=== PATIENT | male | born 1945 | race Caucasian/White ===

== ENCOUNTER 2016-07-16 16:22 | Emergency (ER) | payer MEDICARE, OTHER ==
[2016-07-16] MEDS ORDERED: Ketorolac 60 MG/2 ML SDV IM ONE (16:53)
--- NOTE | 2016-07-16 17:00 | EDM.PDOC ---
ED HPI Trauma - General Chief Complaint: Lower Extremity Injury/Pain Stated Complaint: PAIN LT KNEE Time Seen by Provider: 07/16/16 16:30 - History of Present Illness INITIAL COMMENTS - FREE TEXT/NARRATIVE: HISTORY AND PHYSICAL: History of present illness: The patient is a 71-year-old male who usually follows [facility] or with Dr. New in our clinic presents with a several year history of on and off left knee pain that got worse over the last few days. Patient used to do work requiring him to be on his hands and knees a lot and says that he had pain associated with that but he has had no new trauma recently such as twisting or falling on the knee. He has no proximal hip pain and no distal ankle or foot pain. There is no calf pain or swelling. There Is no neurosensory changes in the leg. He has noted some swelling in the area but no other skin changes. He Has no systemic complaints of fever chills chest pain shortness of breath vomiting or diarrhea. He states that when he moves or uses the leg it hurts more when he rested he feels improved. Patient does state that he has had steroid injections in his right knee in the past Review of systems: As per history of present illness and below otherwise all systems reviewed and negative. Past medical history: As per history of present illness and as reviewed below otherwise noncontributory. Surgical history: As per history of present illness and as reviewed below otherwise noncontributory. Social history: No reported history of drug or alcohol abuse. Family history: As per history of present illness and as reviewed below otherwise noncontributory. Physical exam: General: Well-developed overweight male is nontoxic and speaking clearly and easily in the ED. He angulated to the ED without distress. HEENT: Atraumatic, normocephalic, negative for conjunctival pallor or scleral icterus, mucous membranes moist, throat clear, neck supple, nontender, trachea midline. Lungs: Clear to auscultation, breath sounds equal bilaterally, chest nontender. Heart: S1S2, regular, negative for clicks, rubs, or JVD. Abdomen: Soft, nondistended, nontender. Abdomen is rotund bowel sounds are slightly hypoactive Negative for masses or hepatosplenomegaly. Pelvis: Stable nontender. Genitourinary: Deferred. Rectal: Deferred. Extremities: Atraumatic, negative for cords or calf pain. Neurovascular unremarkable. There is no palpable tenderness at the lateral hips and the right knee and ankle without tenderness deformity swelling or changes. At the anterior left knee there is an ill-defined pinkish erythema noted just distal to the patella and there is some warmth in this region but no lesions or skin breaks are seen. It is not circumferential. There is no fluctuance to the area and there is no palpable bony deformities. There is no joint effusion appreciated and distally there is no tenderness in the lateral calf and ankle and proximally there is no streaking of the erythema and there is no extension of this warmth into the thigh. There is no popliteal fossa tenderness. Patient is able to flex and extend at the knee. Neuro: Awake, alert, oriented. Cranial nerves II through XII unremarkable. Cerebellum unremarkable. Motor and sensory unremarkable throughout. Exam nonfocal. Diagnostics: X-ray left knee, CBC CRP ESR uric acid Therapeutics: toradol Scott bandage I discussed all testing results with the patient and the likely diagnosis. I will refer him to our orthopedics Department for further care as well as back to [facility] to see his primary care physician or to Dr. New. The patient has diclofenac that he got from the [facility] that he can continue to take and I have advised him to take it twice a day for the next 5 days to help interrupt the pain cycle. I will also give him a Medrol pack to help assist with the inflammation. Impression: Left knee pain acute on chronic, likely inflammatory arthritis rule out gout Definitive disposition and diagnosis as appropriate pending reevaluation and review of above. Allergies/ADRs: Allergies No Known Allergies Allergy (Verified 07/16/16 16:35) Home Medications: Ambulatory Orders Cholecalciferol (Vitamin D3) [Vitamin D3] 1 tab.chew PO DAILY 01/21/15 [ Confirmed 03/19/16] Clotrimazole/Betamethasone Dip [Lotrisone Cream] 1 applic TOP ASDIRECTED PRN 11/30 [Confirmed 03/19/16] Cyanocobalamin (Vitamin B-12) [Vitamin B-12] 1 tab PO DAILY 01/21/15 [Confirmed 03/19/16] Dutasteride [Avodart] 1 tab PO BEDTIME 01/21/15 [Confirmed 03/19/16] Inulin [Fiber Choice] 1 tab.chew CHEW DAILY 01/21/15 [Confirmed 03/19/16] Bacillus Coagulans [Probiotic] 1 tab.chew PO DAILY 03/14/16 [Confirmed 03/19/16] Diclofenac Sodium [Voltaren 1% Gel] 1 applic TOP BID 03/14/16 [Confirmed ] Naproxen Sodium [Aleve] 1 tab PO ASDIRECTED PRN 03/14/16 [Confirmed 03/19/16] Omega3/Dha/Epa/Fish Oil/Vit D3 [[place]-3 + Vitamin D3 Softgel] 1 tab PO DAILY [Confirmed 03/19/16] Acetaminophen/oxyCODONE [Percocet 325-5 MG] 1 tab PO Q6H PRN #30 tablet [Confirmed 03/19/16] Docusate Sodium [Colace] 100 mg PO DAILY #5 cap 03/17/16 [Confirmed 03/19/16] Past Medical History Other HEENT History: coral hearing aids Cardiovascular History: Reports: High cholesterol Respiratory History: Reports: COPD, Sleep apnea Other Respiratory History: uses CPAP Gastrointestinal History: Reports: Other (see below) Other Gastrointestinal History: occasional heartburn Genitourinary History: Reports: BPH Other Genitourinary History: BPH Musculoskeletal History: Reports: Arthritis Neurological History: Reports: None Psychiatric History: Reports: None Endocrine/Metabolic History: Reports: Obesity/BMI 30+ Other Endocrine/Metabolic History: prediabetic Hematologic History: Reports: None Immunologic History: Reports: None Oncologic (Cancer) History: Reports: None Dermatologic History: Reports: Other (see below) Other Dermatologic History: groin rash, anal pruritus, dermatitis - Past Surgical History Head Surgeries/Procedures: Reports: None HEENT Surgical History: Reports: None Cardiovascular Surgical History: Reports: None Respiratory Surgical History: Reports: None GI Surgical History: Reports: Colonoscopy, EGD, Hernia, abdominal Male Surgical History: Reports: None Endocrine Surgical History: Reports: None Musculoskeletal Surgical History: Reports: None Oncologic Surgical History: Reports: None Social & Family History - Family History Family Medical History: Noncontributory - Tobacco Use Smoking Status *Q: Never Smoker Second Hand Smoke Exposure: No - Caffeine Use Caffeine Use: Reports: None - Recreational Drug Use Recreational Drug Use: No Drug Use in Last 12 Months: No Review of Systems - Review of Systems Review Of Systems: ROS reveals no pertinent complaints other than HPI. Trauma Exam - Physical Exam Exam: See Below (See dictation) Course - Vital Signs Last Recorded V/S: Last Vital Signs Temp 36.9 C 07/16/16 16:36 Pulse 103 H 07/16/16 16:36 Resp 18 07/16/16 16:36 BP 142/93 H 07/16/16 16:36 Pulse Ox 97 07/16/16 16:36 - Orders/Labs/Meds Orders: Active Orders 24 hr Category Date Time Status Knee 3V Lt [CR] Stat Exams 07/16/16 16:53 Taken Labs: Laboratory Tests 07/16/16 07/16/16 07/16/16 Range/Units 17:00 17:00 17:00 WBC 10.61 (4.0-11.0) K/uL RBC 4.41 L (4.50-5.90) M/uL Hgb 13.7 (13.0-17.0) g/dL Hct 39.1 (38.0-50.0) % MCV 88.7 (80.0-98.0) fL MCH 31.1 (27.0-32.0) pg MCHC 35.0 (31.0-37.0) g/dL RDW Std Deviation 44.8 (28.0-62.0) fl RDW Coeff of Tigist 14 (11.0-15.0) % Plt Count 149 L (150-400) K/uL MPV 9.70 (7.40-12.00) fL Neut % (Auto) 75.7 (48.0-80.0) % Lymph % (Auto) 14.8 L (16.0-40.0) % [place] % (Auto) 7.9 (0.0-15.0) % Eos % (Auto) 1.4 (0.0-7.0) % Baso % (Auto) 0.2 (0.0-1.5) % Neut # 8.0 H (1.4-5.7) K/uL Lymph # 1.6 (0.6-2.4) K/uL [place] # 0.8 (0.0-0.8) K/uL Eos # 0.2 (0.0-0.7) K/uL Baso # 0.0 (0.0-0.1) K/uL Nucleated RBC % 0.0 /100WBC Nucleated RBCs # 0 K/uL ESR 33 H (0-19) mm/hr Uric Acid 7.9 H (2.1-7.4) mg/dL C-Reactive Protein 0.97 H (0.0-0.5) mg/dL Meds: Medications Discontinued Medications Generic Name Dose Route Start Last Admin Trade Name Freq PRN Reason Stop Dose Admin Ketorolac Tromethamine 60 mg 07/16/16 16:53 07/16/16 17:03 Toradol IM 07/16/16 16:54 60 mg ONETIME ONE Administration Departure - Departure Time of Disposition: 17:59 Disposition: Home, Self-Care 01 Condition: good Clinical Impression: Inflammatory arthritis Left knee pain Qualifiers: Chronicity: unspecified Qualified Code(s): M25.562 - Pain in left knee Forms: ED Department Discharge Additional Instructions: The following information is given to patients seen in the emergency department who are being discharged to home. This information is to outline your options for follow-up care. We provide all patients seen in our emergency department with a follow-up referral. The need for follow-up, as well as the timing and circumstances, are variable depending upon the specifics of your emergency department visit. If you don't have a primary care physician on staff, we will provide you with a referral. We always advise you to contact your personal physician following an emergency department visit to inform them of the circumstance of the visit and for follow-up with them and/or the need for any referrals to a consulting specialist. The emergency department will also refer you to a specialist when appropriate. This referral assures that you have the opportunity for followup care with a specialist. All of these measure are taken in an effort to provide you with optimal care, which includes your followup. Under all circumstances we always encourage you to contact your private physician who remains a resource for coordinating your care. When calling for followup care, please make the office aware that this follow-up is from your recent emergency room visit. If for any reason you are refused follow-up, please contact the [facility] emergency department at and ask to speak to the emergency department charge nurse. [facility] Primary care- Internal Medicine and Family [address] [address] [facility] Specialty Care--Orthopedic clinic Professional Building [address] [place] [address] [address] [place] [address] Please contact your primary care physician, Dr. Castañeda, to be reevaluated and also contacted our orthopedics Department for further care and evaluation. Use Scott bandage when up and doing activities and remove at bedtime. Elevate and ice the knee. Please take the diclofenac medication that you have already and at the Medrol Dosepak as prescribed to you today from [place]. Return to ER as needed and as discussed - My Orders Last 24 Hours: My Active Orders 07/16/16 16:53 Knee 3V Lt [CR] Stat - Assessment/Plan Last 24 Hours: My Active Orders 07/16/16 16:53 Knee 3V Lt [CR] Stat
[2016-07-16 18:19] VITALS: BP 140/78
--- NOTE | 2016-07-17 13:21 | CR ---
EXAM DATE: 07/16/16 PATIENT'S AGE: 71 Patient: AILIN ISRAEL Facility: [place], [place] Site . Site : 1945 Study: XRay Knee Left [id number]/29/2017 5:37:00 PM Ordering Physician: Davina Garcia Final Report: INDICATION: pain FINDINGS: Three views of the left knee show no evidence of acute fracture or dislocation. Small diffuse marginal osteophyte formation. No other bony or soft tissue abnormalities identified. Dictated by Chin Donaldson MD @ 07/16/2016 5:49:01 PM Dictated by: Chin Donaldson MD @ 07/16/2016 17:49:09 (Electronic Signature) Report Signed by Proxy and Original Signed Document filed in the Medical Record. [email or web address]
== END 2016-07-16 18:18 | disposition home or self-care (01) ==
LOC: MW.ED 16:22
DX: M25.562 Pain in left knee (principal); E78.00 Pure hypercholesterolemia, unspecified; J44.9 Chronic obstructive pulmonary disease, unspecified; E66.9 Obesity, unspecified
CPT/HCPCS: 36415; 73562; 84550; 85025; 85652; 86140; 96372; 99283; J1885

== ENCOUNTER 2017-02-10 11:58 | Emergency (ER) | payer MEDICARE, OTHER ==
--- NOTE | 2017-02-10 12:09 | EDM.PDOC ---
ED HPI GENERAL MEDICAL PROBLEM - General Chief Complaint: General Stated Complaint: OOZING WOUND ON STOMACH Time Seen by Provider: 02/10/17 11:59 - History of Present Illness INITIAL COMMENTS - FREE TEXT/NARRATIVE: HISTORY AND PHYSICAL: History of present illness: Patient 72-year-old white male with past medical history significant for ventral herniorrhaphy approximately one year prior in dealing with a cellulitis over this herniorrhaphy scar [facility] over the last several weeks he presents now with spontaneous rupture and oozing of serosanguineous material and some purulent material per patient is in no fever no chills he has had erythema and warmth surrounding this area and initially fluctuance prior to the rupture but now it's just slightly indurated. Review of systems: As per history of present illness and below otherwise all systems reviewed and negative. Past medical history: As per history of present illness and as reviewed below otherwise noncontributory. Surgical history: As per history of present illness and as reviewed below otherwise noncontributory. Social history: No reported history of drug or alcohol abuse. Family history: As per history of present illness and as reviewed below otherwise noncontributory. Physical exam: HEENT: Atraumatic, normocephalic, pupils reactive, negative for conjunctival pallor or scleral icterus, mucous membranes moist, throat clear, neck supple, nontender, trachea midline. Lungs: Clear to auscultation, breath sounds equal bilaterally, chest nontender. Heart: S1S2, regular, negative for clicks, rubs, or JVD. Abdomen: Soft, approximately 2 and half centimeters spontaneous rupture mid herniorrhaphy line with serosanguineous material and equivocal small purulent material noted he has a large area of surrounding erythema and warmth is mild tenderness. Negative for masses or hepatosplenomegaly. Negative for costovertebral tenderness. Pelvis: Stable nontender. Genitourinary: Deferred. Rectal: Deferred. Extremities: Atraumatic, negative for cords or calf pain. Neurovascular unremarkable. Neuro: Awake, alert, oriented. Cranial nerves II through XII unremarkable. Cerebellum unremarkable. Motor and sensory unremarkable throughout. Exam nonfocal. Diagnostics: CBC CMP wound culture CT abdomen and pelvis with IV contrast blood culture 2 lactic acid chest x-ray EKG Therapeutics: Normal saline 1 L bolus vancomycin 1 g IV Impression: #1 abdominal wall cellulitis with abscess/spontaneous rupture #2 history of herniorrhaphy repair 1 year status post Definitive disposition and diagnosis as appropriate pending reevaluation and review of above. - Related Data Allergies Allergy/AdvReac Type Severity Reaction Status Date / Time No Known Allergies Allergy Verified 07/16/16 16:35 Home Meds: Home Meds Cholecalciferol (Vitamin D3) [Vitamin D3] 1 tab.chew PO DAILY 01/21/15 [History] Clotrimazole/Betamethasone Dip [Lotrisone Cream] 1 applic TOP ASDIRECTED PRN 11/30 [History] Cyanocobalamin (Vitamin B-12) [Vitamin B-12] 1 tab PO DAILY 01/21/15 [History] Dutasteride [Avodart] 1 tab PO BEDTIME 01/21/15 [History] Inulin [Fiber Choice] 1 tab.chew CHEW DAILY 01/21/15 [History] Bacillus Coagulans [Probiotic] 1 tab.chew PO DAILY 03/14/16 [History] Diclofenac Sodium [Voltaren 1% Gel] 1 applic TOP BID 03/14/16 [History] Naproxen Sodium [Aleve] 1 tab PO ASDIRECTED PRN 03/14/16 [History] Omega3/Dha/Epa/Fish Oil/Vit D3 [[place]ependence-3 + Vitamin D3 Softgel] 1 tab PO DAILY [History] Acetaminophen/oxyCODONE [Percocet 325-5 MG] 1 tab PO Q6H PRN #30 tablet [Rx] Docusate Sodium [Colace] 100 mg PO DAILY #5 cap 03/17/16 [Rx] Past Medical History Other HEENT History: coral hearing aids Cardiovascular History: Reports: High Cholesterol Respiratory History: Reports: COPD, Sleep Apnea Other Respiratory History: uses CPAP Gastrointestinal History: Reports: Other (See Below) Other Gastrointestinal History: occasional heartburn Genitourinary History: Reports: BPH Other Genitourinary History: BPH Musculoskeletal History: Reports: Arthritis Neurological History: Reports: None Psychiatric History: Reports: None Endocrine/Metabolic History: Reports: Obesity/BMI 30+ Other Endocrine/Metabolic History: prediabetic Hematologic History: Reports: None Immunologic History: Reports: None Oncologic (Cancer) History: Reports: None Dermatologic History: Reports: Other (See Below) Other Dermatologic History: groin rash, anal pruritus, dermatitis - Past Surgical History GI Surgical History: Reports: Colonoscopy, EGD, Hernia, Abdominal Social & Family History - Family History Family Medical History: Noncontributory - Tobacco Use Smoking Status *Q: Never Smoker Second Hand Smoke Exposure: No - Caffeine Use Caffeine Use: Reports: None - Recreational Drug Use Recreational Drug Use: No Drug Use in Last 12 Months: No ED ROS GENERAL - Review of Systems Review Of Systems: ROS reveals no pertinent complaints other than HPI. ED EXAM, GENERAL - Physical Exam Exam: See Below (See dictation) Course - Vital Signs Last Recorded V/S: Last Vital Signs Temp 35.8 C 02/10/17 12:04 Pulse 66 02/10/17 14:20 Resp 20 02/10/17 12:04 BP 117/71 02/10/17 14:20 Pulse Ox 96 02/10/17 14:20 - Orders/Labs/Meds Orders: Active Orders 24 hr Category Date Time Status EKG Documentation Completion [RC] STAT Care 02/10/17 12:09 Active Abdomen Pelvis w Cont [CT] Stat Exams 02/10/17 12:10 Taken Chest 1V Frontal [CR] Stat Exams 02/10/17 12:10 Taken CULTURE BLOOD [BC] Stat Lab 02/10/17 12:20 Received CULTURE BLOOD [BC] Stat Lab 02/10/17 12:26 Received Sodium Chloride 0.9% [Saline Flush] Med 02/10/17 12:10 Active 10 ml FLUSH ASDIRECTED PRN Sodium Chloride 0.9% [Saline Flush] Med 02/10/17 12:10 Active 2.5 ml FLUSH ASDIRECTED PRN Blood Culture x2 Reflex Set [OM.PC] Stat Oth 02/10/17 12:10 Ordered Saline Lock Insert [OM.PC] Stat Oth 02/10/17 12:09 Ordered Medication Orders Sodium Chloride (Saline Flush) 10 ml FLUSH ASDIRECTED PRN PRN Reason: Keep Vein Open Sodium Chloride (Saline Flush) 2.5 ml FLUSH ASDIRECTED PRN PRN Reason: Keep Vein Open Labs: Laboratory Tests 02/10/17 02/10/17 02/10/17 Range/Units 12:20 12:20 12:20 WBC 16.06 H (4.0-11.0) K/uL RBC 4.34 L (4.50-5.90) M/uL Hgb 13.4 (13.0-17.0) g/dL Hct 38.7 (38.0-50.0) % MCV 89.2 (80.0-98.0) fL MCH 30.9 (27.0-32.0) pg MCHC 34.6 (31.0-37.0) g/dL RDW Std Deviation 45.3 (28.0-62.0) fl RDW Coeff of Tigist 14 (11.0-15.0) % Plt Count 284 (150-400) K/uL MPV 9.30 (7.40-12.00) fL Neut % (Auto) 83.3 H (48.0-80.0) % Lymph % (Auto) 7.3 L (16.0-40.0) % [place] % (Auto) 8.5 (0.0-15.0) % Eos % (Auto) 0.7 (0.0-7.0) % Baso % (Auto) 0.2 (0.0-1.5) % Neut # (Auto) 13.4 H (1.4-5.7) K/uL Lymph # (Auto) 1.2 (0.6-2.4) K/uL [place] # (Auto) 1.4 H (0.0-0.8) K/uL Eos # (Auto) 0.1 (0.0-0.7) K/uL Baso # (Auto) 0.0 (0.0-0.1) K/uL Nucleated RBC % 0.0 /100WBC Nucleated RBCs # 0 K/uL INR 1.15 H (0.86-1.11) Lactate 1.2 (0.20-2.00) mmol/L Sodium (136-146) mmol/L Potassium (3.5-5.1) mmol/L Chloride (98-110) mmol/L Carbon Dioxide (21-31) mmol/L BUN (6.0-23.0) mg/dL Creatinine (0.6-1.5) mg/dL Est Cr Clr Drug Dosing mL/min Estimated GFR (MDRD) ml/min Glucose (60-110) mg/dL Calcium (8.8-10.8) mg/dL Total Bilirubin (0.1-1.5) mg/dL AST (5-40) IU/L ALT (8-54) IU/L Alkaline Phosphatase (40-150) Total Protein (6.0-8.0) g/dL Albumin (3.4-4.8) g/dL Globulin (2.0-3.5) g/dL Albumin/Globulin Ratio (1.3-2.8) Urine Color Urine Appearance Urine pH (5.0-8.0) Ur Specific [place] (1.001-1.035) Urine Protein (NEGATIVE) mg/dL Urine Glucose (UA) (NEGATIVE) mg/dL Urine Ketones (NEGATIVE) mg/dL Urine Occult Blood (NEGATIVE) Urine Nitrite (NEGATIVE) Urine Bilirubin (NEGATIVE) Urine Ictotest Urine Urobilinogen (<2.0) EU/dL Ur Leukocyte Esterase (NEGATIVE) Urine RBC (0-2/HPF) Urine WBC (0-5/HPF) Ur Epithelial Cells (NONE-FEW) Urine Bacteria (NEGATIVE) Urine Mucus (NONE-MOD) 02/10/17 02/10/17 Range/Units 12:20 12:41 WBC (4.0-11.0) K/uL RBC (4.50-5.90) M/uL Hgb (13.0-17.0) g/dL Hct (38.0-50.0) % MCV (80.0-98.0) fL MCH (27.0-32.0) pg MCHC (31.0-37.0) g/dL RDW Std Deviation (28.0-62.0) fl RDW Coeff of Tigist (11.0-15.0) % Plt Count (150-400) K/uL MPV (7.40-12.00) fL Neut % (Auto) (48.0-80.0) % Lymph % (Auto) (16.0-40.0) % [place] % (Auto) (0.0-15.0) % Eos % (Auto) (0.0-7.0) % Baso % (Auto) (0.0-1.5) % Neut # (Auto) (1.4-5.7) K/uL Lymph # (Auto) (0.6-2.4) K/uL [place] # (Auto) (0.0-0.8) K/uL Eos # (Auto) (0.0-0.7) K/uL Baso # (Auto) (0.0-0.1) K/uL Nucleated RBC % /100WBC Nucleated RBCs # K/uL INR (0.86-1.11) Lactate (0.20-2.00) mmol/L Sodium 135 L (136-146) mmol/L Potassium 4.8 (3.5-5.1) mmol/L Chloride 102 (98-110) mmol/L Carbon Dioxide 20 L (21-31) mmol/L BUN 20 (6.0-23.0) mg/dL Creatinine 0.9 (0.6-1.5) mg/dL Est Cr Clr Drug Dosing 72.83 mL/min Estimated GFR (MDRD) > 60.0 ml/min Glucose 138 H (60-110) mg/dL Calcium 8.8 (8.8-10.8) mg/dL Total Bilirubin 0.9 (0.1-1.5) mg/dL AST 53 H (5-40) IU/L ALT 58 H (8-54) IU/L Alkaline Phosphatase 102 (40-150) Total Protein 7.6 (6.0-8.0) g/dL Albumin 3.8 (3.4-4.8) g/dL Globulin 3.8 H (2.0-3.5) g/dL Albumin/Globulin Ratio 1.0 L (1.3-2.8) Urine Color DARK YELLOW Urine Appearance CLEAR Urine pH 6.0 (5.0-8.0) Ur Specific [place] >= 1.030 (1.001-1.035) Urine Protein NEGATIVE (NEGATIVE) mg/dL Urine Glucose (UA) NEGATIVE (NEGATIVE) mg/dL Urine Ketones NEGATIVE (NEGATIVE) mg/dL Urine Occult Blood TRACE-INTACT (NEGATIVE) Urine Nitrite NEGATIVE (NEGATIVE) Urine Bilirubin SMALL H (NEGATIVE) Urine Ictotest NEGATIVE Urine Urobilinogen 0.2 (<2.0) EU/dL Ur Leukocyte Esterase NEGATIVE (NEGATIVE) Urine RBC 0-1 (0-2/HPF) Urine WBC 0-2 (0-5/HPF) Ur Epithelial Cells RARE (NONE-FEW) Urine Bacteria 1+ H (NEGATIVE) Urine Mucus HEAVY (NONE-MOD) Meds: Medications Generic Name Dose Route Start Last Admin Trade Name Freq PRN Reason Stop Dose Admin Sodium Chloride 10 ml 02/10/17 12:10 Saline Flush FLUSH ASDIRECTED PRN Keep Vein Open Sodium Chloride 2.5 ml 02/10/17 12:10 Saline Flush FLUSH ASDIRECTED PRN Keep Vein Open Discontinued Medications Generic Name Dose Route Start Last Admin Trade Name Mark PRN Reason Stop Dose Admin Sodium Chloride 1,000 mls @ 999 mls/hr 02/10/17 12:10 02/10/17 12:54 Normal Saline IV 02/10/17 13:10 999 mls/hr STAT ONE Administration Vancomycin HCl 1 gm/ Sodium 250 mls @ 250 mls/hr 02/10/17 12:10 02/10/17 12: 55 Chloride IV 02/10/17 13:09 250 mls/hr ONETIME ONE Administration Iopamidol 100 ml 02/10/17 13:22 02/10/17 13:23 Isovue Multipack-370 (76%) IVPUSH 02/10/17 13:23 100 ml ONETIME STA Administration Departure - Departure Time of Disposition: 12:09 Disposition: DC/Tfer to Other 70 Condition: Good Clinical Impression: Cellulitis - Discharge Information Referrals: PCP,None [Family Provider] - Forms: ED Department Discharge - My Orders Last 24 Hours: My Active Orders 02/10/17 12:09 EKG Documentation Completion [RC] STAT Saline Lock Insert [OM.PC] Stat 02/10/17 12:10 Abdomen Pelvis w Cont [CT] Stat Chest 1V Frontal [CR] Stat Sodium Chloride 0.9% [Saline Flush] 10 ml FLUSH ASDIRECTED PRN Sodium Chloride 0.9% [Saline Flush] 2.5 ml FLUSH ASDIRECTED PRN Blood Culture x2 Reflex Set [OM.PC] Stat 02/10/17 12:20 CULTURE BLOOD [BC] Stat 02/10/17 12:26 CULTURE BLOOD [BC] Stat - Assessment/Plan Last 24 Hours: My Active Orders 02/10/17 12:09 EKG Documentation Completion [RC] STAT Saline Lock Insert [OM.PC] Stat 02/10/17 12:10 Abdomen Pelvis w Cont [CT] Stat Chest 1V Frontal [CR] Stat Sodium Chloride 0.9% [Saline Flush] 10 ml FLUSH ASDIRECTED PRN Sodium Chloride 0.9% [Saline Flush] 2.5 ml FLUSH ASDIRECTED PRN Blood Culture x2 Reflex Set [OM.PC] Stat 02/10/17 12:20 CULTURE BLOOD [BC] Stat 02/10/17 12:26 CULTURE BLOOD [BC] Stat
[2017-02-10] MEDS ORDERED: Sodium Chloride 0.9% 10 ML Syringe FLUSH PRN (12:10)
[2017-02-10] MEDS ORDERED: Sodium Chloride 0.9% 1,000 ML IV ONE (12:10)
[2017-02-10] MEDS ORDERED: Sodium Chloride 0.9% 2.5 ML Syringe FLUSH PRN (12:10)
[2017-02-10 12:56] LABS: CHLORIDE,CL 102 mmol/L (98-110); SODIUM,NA 135 mmol/L (136-146)
[2017-02-10] MEDS ORDERED: Iopamidol 755 MG/ML 500 ML Multipack Bottle IVPUSH STA (13:22)
[2017-02-10 14:21] VITALS: BP 117/71
--- NOTE | 2017-02-10 14:32 | PCM.CONS ---
H&P History of Present Illness - General Date of Service: 02/10/17 Admit Problem/Dx: abdominal wall cellulitis with abscess Source of Information: Patient History Limitations: Reports: No Limitations - History of Present Illness Initial Comments - Free Text/Narative: Patient is a 72-year-old gentleman who presented to the emergency room today complaining of spontaneous drainage from his abdomen. Apparently he has had significant swelling and erythema for several weeks. He has been under the care of the [facility] clinic. Reportedly, he was started on oral antibiotics and arrangements made for him to see Dr. Schuler on Sunday. Dr. Schuler performed his last hernia repair. This was done in March 2016 and was done with a component separation technique. Supposedly, the patient had done quite well until recently. Onset of Symptoms: Reports: Gradual Duration of Symptoms: Reports: Week(s):, Getting Worse Location: Reports: Abdomen Quality: Reports: Pressure Severity: Severe Improves with: Reports: None Worsens with: Reports: None Associated Symptoms: Denies: Confusion, Fever/Chills, Headaches, Loss of Appetite, Malaise, Nausea/Vomiting - Related Data Allergies/Adverse Reactions: Allergies Allergy/AdvReac Type Severity Reaction Status Date / Time No Known Allergies Allergy Verified 07/16/16 16:35 Home Medications: Home Meds Cholecalciferol (Vitamin D3) [Vitamin D3] 1 tab.chew PO DAILY 01/21/15 [History] Clotrimazole/Betamethasone Dip [Lotrisone Cream] 1 applic TOP ASDIRECTED PRN 11/30 [History] Cyanocobalamin (Vitamin B-12) [Vitamin B-12] 1 tab PO DAILY 01/21/15 [History] Dutasteride [Avodart] 1 tab PO BEDTIME 01/21/15 [History] Inulin [Fiber Choice] 1 tab.chew CHEW DAILY 01/21/15 [History] Bacillus Coagulans [Probiotic] 1 tab.chew PO DAILY 03/14/16 [History] Diclofenac Sodium [Voltaren 1% Gel] 1 applic TOP BID 03/14/16 [History] Naproxen Sodium [Aleve] 1 tab PO ASDIRECTED PRN 03/14/16 [History] Omega3/Dha/Epa/Fish Oil/Vit D3 [[place]-3 + Vitamin D3 Softgel] 1 tab PO DAILY 09/ 27/16 [History] Acetaminophen/oxyCODONE [Percocet 325-5 MG] 1 tab PO Q6H PRN #30 tablet [Rx] Docusate Sodium [Colace] 100 mg PO DAILY #5 cap 03/17/16 [Rx] Past Medical History Other HEENT History: coral hearing aids Cardiovascular History: Reports: High Cholesterol Respiratory History: Reports: COPD, Sleep Apnea Other Respiratory History: uses CPAP Gastrointestinal History: Reports: Other (See Below) Other Gastrointestinal History: occasional heartburn Genitourinary History: Reports: BPH Other Genitourinary History: BPH Musculoskeletal History: Reports: Arthritis Neurological History: Reports: None Psychiatric History: Reports: None Endocrine/Metabolic History: Reports: Obesity/BMI 30+ Other Endocrine/Metabolic History: prediabetic Hematologic History: Reports: None Immunologic History: Reports: None Oncologic (Cancer) History: Reports: None Dermatologic History: Reports: Other (See Below) Other Dermatologic History: groin rash, anal pruritus, dermatitis - Past Surgical History GI Surgical History: Reports: Colonoscopy, EGD, Hernia, Abdominal Social & Family History - Family History Family Medical History: Noncontributory - Tobacco Use Smoking Status *Q: Never Smoker Second Hand Smoke Exposure: No - Caffeine Use Caffeine Use: Reports: None - Recreational Drug Use Recreational Drug Use: No Drug Use in Last 12 Months: No H&P Review of Systems - Review of Systems: Review Of Systems: See Below General: Denies: Fever, Chills, Malaise, Weakness, Fatigue, Diaphoresis HEENT: Reports: No Symptoms Pulmonary: Denies: Shortness of Breath, Wheezing Cardiovascular: Denies: Chest Pain, Palpitations Gastrointestinal: Reports: Abdominal Pain, Other (Spontaneous purulent drainage from the area of his most recent hernia repair.). Denies: Anorexia, Black Stool , Bloody Stool, Constipation, Diarrhea, Decreased Appetite, Nausea, Vomiting Genitourinary: Reports: No Symptoms Musculoskeletal: Reports: No Symptoms Skin: Denies: Cyanosis, Jaundice, Mottled, Pallor, Diaphoresis Psychiatric: Reports: No Symptoms Neurological: Reports: No Symptoms Hematologic/Lymphatic: Reports: No Symptoms Immunologic: Reports: No Symptoms Exam - Exam Exam: See Below - Vital Signs Vital Signs: Last Vital Signs Temp 96.5 F 02/10/17 12:04 Pulse 66 02/10/17 14:20 Resp 20 02/10/17 12:04 BP 117/71 02/10/17 14:20 Pulse Ox 96 02/10/17 14:20 Weight: 210 lb 5.136 oz - Exam Quality Assessment: Skin Breakdown (In the upper midline anterior abdomen there is an almost 2 cm size defect of necrotic skin.). No: Supplemental Oxygen, Urinary Catheter General: Alert, Oriented, Cooperative, Mild Distress HEENT: Conjunctiva Clear, EACs Clear, Mucosa Moist & Rimini, Nares Patent, Pupils Equal, Pupils Reactive. No: Scleral Icterus Neck: Supple, Trachea Midline Lungs: Clear to Auscultation, Normal Respiratory Effort Cardiovascular: Regular Rate, Regular Rhythm GI/Abdominal Exam: Normal Bowel Sounds, Soft, Distended, Tender, Mass (15 cm mass in the midportion of the abdomen extending slightly more to the left than to the right.). No: Guarding, Rigid, Rebound (Male) Exam: No Hernia Rectal (Males) Exam: Deferred Back Exam: Normal Inspection Extremities: Normal Inspection, No Pedal Edema Skin: Warm, Dry, Intact, Wound (Upper midline abdominal wound with necrotic skin.) Neurological: Cranial Nerves Intact Neuro Extensive - Mental Status: Alert, Oriented x3 Psychiatric: Alert, Normal Affect, Normal Mood - Patient Data Lab Results Last 24 hrs: Laboratory Results - last 24 hr 02/10/17 02/10/17 02/10/17 Range/Units 12:20 12:20 12:20 WBC 16.06 H (4.0-11.0) K/uL RBC 4.34 L (4.50-5.90) M/uL Hgb 13.4 (13.0-17.0) g/dL Hct 38.7 (38.0-50.0) % MCV 89.2 (80.0-98.0) fL MCH 30.9 (27.0-32.0) pg MCHC 34.6 (31.0-37.0) g/dL RDW Std Deviation 45.3 (28.0-62.0) fl RDW Coeff of Tigist 14 (11.0-15.0) % Plt Count 284 (150-400) K/uL MPV 9.30 (7.40-12.00) fL Neut % (Auto) 83.3 H (48.0-80.0) % Lymph % (Auto) 7.3 L (16.0-40.0) % [place] % (Auto) 8.5 (0.0-15.0) % Eos % (Auto) 0.7 (0.0-7.0) % Baso % (Auto) 0.2 (0.0-1.5) % Neut # (Auto) 13.4 H (1.4-5.7) K/uL Lymph # (Auto) 1.2 (0.6-2.4) K/uL [place] # (Auto) 1.4 H (0.0-0.8) K/uL Eos # (Auto) 0.1 (0.0-0.7) K/uL Baso # (Auto) 0.0 (0.0-0.1) K/uL Nucleated RBC % 0.0 /100WBC Nucleated RBCs # 0 K/uL INR 1.15 H (0.86-1.11) Lactate 1.2 (0.20-2.00) mmol/L Sodium (136-146) mmol/L Potassium (3.5-5.1) mmol/L Chloride (98-110) mmol/L Carbon Dioxide (21-31) mmol/L BUN (6.0-23.0) mg/dL Creatinine (0.6-1.5) mg/dL Est Cr Clr Drug Dosing mL/min Estimated GFR (MDRD) ml/min Glucose (60-110) mg/dL Calcium (8.8-10.8) mg/dL Total Bilirubin (0.1-1.5) mg/dL AST (5-40) IU/L ALT (8-54) IU/L Alkaline Phosphatase (40-150) Total Protein (6.0-8.0) g/dL Albumin (3.4-4.8) g/dL Globulin (2.0-3.5) g/dL Albumin/Globulin Ratio (1.3-2.8) Urine Color Urine Appearance Urine pH (5.0-8.0) Ur Specific [place] (1.001-1.035) Urine Protein (NEGATIVE) mg/dL Urine Glucose (UA) (NEGATIVE) mg/dL Urine Ketones (NEGATIVE) mg/dL Urine Occult Blood (NEGATIVE) Urine Nitrite (NEGATIVE) Urine Bilirubin (NEGATIVE) Urine Ictotest Urine Urobilinogen (<2.0) EU/dL Ur Leukocyte Esterase (NEGATIVE) Urine RBC (0-2/HPF) Urine WBC (0-5/HPF) Ur Epithelial Cells (NONE-FEW) Urine Bacteria (NEGATIVE) Urine Mucus (NONE-MOD) 02/10/17 02/10/17 Range/Units 12:20 12:41 WBC (4.0-11.0) K/uL RBC (4.50-5.90) M/uL Hgb (13.0-17.0) g/dL Hct (38.0-50.0) % MCV (80.0-98.0) fL MCH (27.0-32.0) pg MCHC (31.0-37.0) g/dL RDW Std Deviation (28.0-62.0) fl RDW Coeff of Tigist (11.0-15.0) % Plt Count (150-400) K/uL MPV (7.40-12.00) fL Neut % (Auto) (48.0-80.0) % Lymph % (Auto) (16.0-40.0) % [place] % (Auto) (0.0-15.0) % Eos % (Auto) (0.0-7.0) % Baso % (Auto) (0.0-1.5) % Neut # (Auto) (1.4-5.7) K/uL Lymph # (Auto) (0.6-2.4) K/uL [place] # (Auto) (0.0-0.8) K/uL Eos # (Auto) (0.0-0.7) K/uL Baso # (Auto) (0.0-0.1) K/uL Nucleated RBC % /100WBC Nucleated RBCs # K/uL INR (0.86-1.11) Lactate (0.20-2.00) mmol/L Sodium 135 L (136-146) mmol/L Potassium 4.8 (3.5-5.1) mmol/L Chloride 102 (98-110) mmol/L Carbon Dioxide 20 L (21-31) mmol/L BUN 20 (6.0-23.0) mg/dL Creatinine 0.9 (0.6-1.5) mg/dL Est Cr Clr Drug Dosing 72.83 mL/min Estimated GFR (MDRD) > 60.0 ml/min Glucose 138 H (60-110) mg/dL Calcium 8.8 (8.8-10.8) mg/dL Total Bilirubin 0.9 (0.1-1.5) mg/dL AST 53 H (5-40) IU/L ALT 58 H (8-54) IU/L Alkaline Phosphatase 102 (40-150) Total Protein 7.6 (6.0-8.0) g/dL Albumin 3.8 (3.4-4.8) g/dL Globulin 3.8 H (2.0-3.5) g/dL Albumin/Globulin Ratio 1.0 L (1.3-2.8) Urine Color DARK YELLOW Urine Appearance CLEAR Urine pH 6.0 (5.0-8.0) Ur Specific [place] >= 1.030 (1.001-1.035) Urine Protein NEGATIVE (NEGATIVE) mg/dL Urine Glucose (UA) NEGATIVE (NEGATIVE) mg/dL Urine Ketones NEGATIVE (NEGATIVE) mg/dL Urine Occult Blood TRACE-INTACT (NEGATIVE) Urine Nitrite NEGATIVE (NEGATIVE) Urine Bilirubin SMALL H (NEGATIVE) Urine Ictotest NEGATIVE Urine Urobilinogen 0.2 (<2.0) EU/dL Ur Leukocyte Esterase NEGATIVE (NEGATIVE) Urine RBC 0-1 (0-2/HPF) Urine WBC 0-2 (0-5/HPF) Ur Epithelial Cells RARE (NONE-FEW) Urine Bacteria 1+ H (NEGATIVE) Urine Mucus HEAVY (NONE-MOD) Result Diagrams: 02/10/17 12:20 02/10/17 12:20 Imaging Impressions Last 24 hrs: CT scan of the abdomen has been personally reviewed. The radiologist interpretation is not yet available. To my review, there is a very large fluid collection in the middle third of his abdominal wall with an area of necrotic skin overlying this. I cannot tell for certain if there is a fascial defect underlying this, but my concern is that he has developed a very significant abdominal wall cellulitis with abscess and probable recurrent hernia. Consult PN Assessment/Plan Procedures: Procedures ALANINE AMINO (ALT) (SGPT) (09/17/15) ASSAY OF BLOOD/URIC ACID (07/16/16) ASSAY OF PSA TOTAL (09/21/16) BILIRUBIN DIRECT (08/03/15) BILIRUBIN TOTAL (08/03/15) C-REACTIVE PROTEIN (07/16/16) COMPLETE CBC W/AUTO DIFF WBC (07/16/16) COMPREHEN METABOLIC PANEL (07/20/16) CT ABD & PELVIS W/O CONTRAST (05/08/16) DIAGNOSTIC COLONOSCOPY (01/25/15) ECHO EXAM OF ABDOMEN (01/31/17) EMERGENCY DEPT VISIT (07/16/16) GLUCOSE BLOOD TEST (03/16/16) GLYCOSYLATED HEMOGLOBIN TEST (07/20/16) HYDRATE IV INFUSION ADD-ON (03/16/16) HYDRATION IV INFUSION INIT (03/16/16) LIPID PANEL (07/20/16) METABOLIC PANEL TOTAL CA (09/01/15) OFFICE/OUTPATIENT VISIT EST (08/03/15) RBC SED RATE AUTOMATED (07/16/16) REREPAIR VENTRL AYALA BLOCK (03/16/16) ROUTINE VENIPUNCTURE (09/21/16) THER/PROPH/DIAG INJ SC/IM (07/16/16) TISSUE EXAM BY PATHOLOGIST (03/16/16) TRANSFERASE (AST) (SGOT) (09/17/15) UPR/L XTREMITY ART 2 LEVELS (08/04/16) URINALYSIS AUTO W/SCOPE (09/21/16) X-RAY EXAM OF ABDOMEN (03/19/16) X-RAY EXAM OF ELBOW (12/01/15) X-RAY EXAM OF FOOT (01/31/17) X-RAY EXAM OF KNEE 3 (07/16/16) (1) Abdominal wall abscess at site of surgical wound SNOMED Code(s): 28761253 Code(s): T81.4XXA - INFECTION FOLLOWING A PROCEDURE, INITIAL ENCOUNTER Priority: High Current Visit: Yes (2) Cellulitis SNOMED Code(s): 222755316 Code(s): L03.90 - CELLULITIS, UNSPECIFIED Priority: High Current Visit: Yes Qualifiers: Site of cellulitis: trunk Site of cellulitis of trunk: abdominal wall Qualified Code(s): L03.311 - Cellulitis of abdominal wall Problem List Initiated/Reviewed/Updated: Yes Plan: Patient will require more and prolonged care than is available here at [facility]. I have spoken with Dr. Seymour in [place], [place], who has kindly accepted the patient for transfer to [facility] in [place].
--- NOTE | 2017-02-12 11:54 | CT ---
EXAM DATE: 02/10/17 PATIENT'S AGE: 72 Patient: AILIN ISRAEL Facility: [place], [place] Site . Site : 1945 Study: CT Abdomen/Pelvis [id number]/26/2017 2:04:54 PM Ordering Physician: Nick Xie Final Report: INDICATION: Ruptured hernia externally. Drainage from skin. TECHNIQUE: Volumetric helical scanning of the abdomen and pelvis was performed with 100 cc of Isovue 370 contrast material IV. Coronal and sagittal reconstructions were obtained. COMPARISON: Abdomen/pelvis CT of 05/08/2016. FINDINGS: : Postop changes of ventral hernia repair again demonstrated. On images 83-85 of series 201, a new small defect in the midline is demonstrated and contains fat. The postop fluid collection in the subcutaneous fat in the region of the postop site has generally decreased in size but is now has an irregular margin with associated stranding in the fat and skin thickening, consistent with abscess formation. On images 66-68, demonstrates the clinically apparent sinus tract. The liver edge demonstrates subtle nodularity, compatible with cirrhosis. No bile duct dilation is evident. A small recanalized umbilical vein appears to be present. The spleen is mildly enlarged. No ascites evident. The adrenal glands and pancreas are within normal limits. The kidneys are unremarkable. There is mild benji hepatis lymphadenopathy which is unchanged. The bowel is unremarkable. The prostate is unremarkable. No free fluid is evident. The lung bases are clear. The heart is normal in size. IMPRESSION: 1. Post ventral hernia repair with repair small recurrence in the midline. 2. Postop fluid collection in the subcutaneous fat smaller but now infected with sinus tract to the skin superiorly. 3. Apparent cirrhosis and portal venous hypertension manifested as small recanalized umbilical vein and mild splenomegaly. 4. Unchanged mild benji hepatis lymphadenopathy. Please note that all CT scans at this facility use dose modulation, iterative reconstruction, and/or weight-based dosing when appropriate to reduce radiation dose to as low as reasonably achievable. Dictated by Maxime Townsend MD @ Feb 10 2017 2:31PM (Electronic Signature) Report Signed by Proxy. [facility]'S HOSPITALOksana
--- NOTE | 2017-02-12 11:54 | CR ---
EXAM DATE: 02/10/17 PATIENT'S AGE: 72 Patient: AILIN ISRAEL Facility: [place], [place] Site . Site : 1945 Study: XRay Chest [id number]/26/2017 2:05:16 PM Ordering Physician: Nick Xie Final Report: INDICATION: Chest pain. TECHNIQUE: PA image. COMPARISON: Today`s abdomen/pelvis CT. FINDINGS: Lungs clear. No pleural effusion or pneumothorax. Heart size and pulmonary vasculature within normal limits. No obvious rib fracture or other significant osseous abnormality. IMPRESSION: Negative chest. Dictated by Maxime Townsend MD @ Feb 10 2017 2:31PM (Electronic Signature) Report Signed by Proxy. MARIS
== END 2017-02-10 15:35 | disposition other institution (70) ==
LOC: MW.ED 11:58
DX: L03.311 Cellulitis of abdominal wall (principal); L02.211 Cutaneous abscess of abdominal wall; J44.9 Chronic obstructive pulmonary disease, unspecified; E66.9 Obesity, unspecified; E78.00 Pure hypercholesterolemia, unspecified; M19.90 Unspecified osteoarthritis, unspecified site; Z79.899 Other long term (current) drug therapy; Z98.890 Other specified postprocedural states
CPT/HCPCS: 36415; 71010; 74177; 80053; 81001; 83605; 85025; 85610; 87040; 93005; 99285; J3370; J7040; J7050; Q9967; 99283

== ENCOUNTER 2021-07-20 07:02 | Day surgery (SDC) | payer MEDICARE, OTHER ==
[~2021-07-20 07:02] MED LIST: Lactated Ringers 1,000 ML IV SCH
[2021-07-20] MEDS ORDERED: fentaNYL 100 MCG/2 ML SDV ONE (07:28)
[2021-07-20] MEDS ORDERED: Propofol 200 MG/20 ML SDV ONE ×2 (08:41→08:56)
[2021-07-20 09:32] VITALS: BP 112/63; PULSE 54
== END 2021-07-20 09:42 | disposition home or self-care (01) ==
LOC: MW.SDS 07:02
PROVIDERS: ATTEND Surgery
DX: D64.9 Anemia, unspecified (principal); K29.50 Unspecified chronic gastritis without bleeding; K31.A0 Gastric intestinal metaplasia, unspecified; K64.4 Residual hemorrhoidal skin tags; K22.89 Other specified disease of esophagus; K44.9 Diaphragmatic hernia without obstruction or gangrene; E08.3 Diabetes mellitus due to underlying condition with ophthalmic complications; N40.0 Benign prostatic hyperplasia without lower urinary tract symptoms; E66.09 Other obesity due to excess calories; G47.33 Obstructive sleep apnea (adult) (pediatric); E78.00 Pure hypercholesterolemia, unspecified; J44.9 Chronic obstructive pulmonary disease, unspecified; Z79.899 Other long term (current) drug therapy; Z98.890 Other specified postprocedural states; Z87.891 Personal history of nicotine dependence; Z68.28 Body mass index [BMI] 28.0-28.9, adult
CPT/HCPCS: 43239; 45378; J2704; J3010; J7120; 00813; 99100